=== PATIENT | female | born 1955 | race Caucasian/White ===

== ENCOUNTER 2025-02-10 07:48 | Day surgery (SDC) | payer BC, SELFPAY ==
[2025-01-15 13:28] VITALS: BMI 38.8
[2025-01-15 14:05] LABS: % Eosinophils 1.9 % (0-6); % Immature Granulocytes 0.2 % (0-0.5); % Lymphocytes 22.8 % (20.5-51.1); % Monocytes 9.1 % (1.7-9.3); Absolute Basophils 0.1 10^3/uL (0-0.2); Absolute Eosinophils 0.2 10^3/uL (0-0.7); Absolute Lymphocytes 2.2 10^3/uL (1.2-3.4); Absolute Monocytes 0.9 10^3/uL (0.1-0.6); Absolute Neutrophils 6.3 10^3/uL (1.4-6.5); Hematocrit 45.8 % (37.0-47.0); Hemoglobin 14.7 g/dL (12.0-16.0); Mean Corp Hgb Conc. 32.1 g/dL (33.0-37.0); Mean Corpuscular Hgb 28.1 pg (27.0-31.0); Mean Corpuscular Volume 87.4 fL (81.0-99.0); Mean Platelet Volume 10.8 fL (7.4-10.4); Nucleated Red Blood Cells % 0 %; Platelet Count 238 10^3/uL (130-400); Red Blood Cell Count 5.24 10^6/uL (4.20-5.40); Red Cell Dist. Width 14.1 % (11.5-14.5); White Blood Cell Count 9.7 10^3/uL (4.8-10.8)
[2025-01-15 14:14] LABS: INR 1.15
[2025-01-15 14:53] LABS: ALT (SGPT) 27 U/L (0-35); AST (SGOT) 30 U/L (14-36); Albumin 4.2 g/dl (3.5-5.0); Alkaline Phosphatase 84 U/L (38-126); Blood Urea Nitrogen 15 mg/dl (7-17); Calcium 10.8 mg/dl (8.4-10.2); Carbon Dioxide 27 mmol/L (22-30); Chloride 106 mmol/L (98-107); Estimated Creatinine Clearance 70 ml/min; Glucose 87 mg/dl (70-99); Magnesium 2.1 mg/dl (1.6-2.3); Potassium 4.9 mmol/L (3.5-5.1); Sodium 142 mmol/L (135-145); Total Bilirubin 1.3 mg/dl (0.2-1.3); eGFR > 60.00
[2025-02-10] VITALS (29 sets, daily range): BP systolic 95–156; BP diastolic 63–98; BMI 38.8
[2025-02-10 11:27] LABS: ACT-LR - POC 273 Seconds (116-155)
--- NOTE | 2025-02-10 12:02 | ITS.CL.ABL ---
Research Programmer - Ablation
Ablation
Procedure Report:
ELECTROPHYSIOLOGY ABLATION STUDY
DATE:: February 10, 2025�����������������������������REFERRING: Dr. Boaz Dobbins
INDICATION: Persistent supraventricular tachycardia in the form of atrial fibrillation.��Prior cryoballoon ablation in 2023 and prior tachycardia induced cardiomyopathy
HISTORY: See H and P.��As above
ANTIARRHYTHMIC DRUG: Prior history of amiodarone use
PRE-PROCEDURE RONAN: No intracardiac thrombus and intracardiac ultrasound. Intracardiac ultrasound demonstrated ejection fraction of 2024%
PRESENTING RHYTHM: Atrial fibrillation with rapid ventricular response
'TIME-OUT':��called and confirmed.
SEDATION/ANESTHESIA:��provided via the anesthesia department using general anesthesia (LMA).
INTRAVENOUS/ARTERIAL ACCESS:
Right femoral venous -8 Venezuelan, upgraded to a 16.8 Venezuelan long sheath with serial dilation
Left femoral venous - 8 Fr, 6 Fr
Left femoral arterial - 5 Fr
Ultrasound guidance for bilateral femoral vein access was utilized by me to obtain access with demonstration of normal anatomy
CHADS-VASC Score:
Qpoics-ml-fjuzr suture after protamine
HAS-Bled Score
PROCEDURE:
1.��A decapolar CS catheter was placed within the CS for mapping and pacing.��This was also used as the reference catheter for the 3-D map.
2. The intracardiac ultrasound catheter was positioned in the RA to identify the FO for targeting of transseptal puncture, assist��in identification of the pulmonary vein ostia, monitoring pre and post ablation pulmonary vein flow velocities,
monitoring for 'bubble' formation during RF application as a sign of thermal injury,��and to monitor for pericardial effusion during mapping and ablation procedure.���Left atrial size, LV ejection fraction, and pulmonary vein flows were monitored
pre and post ablation procedure. The other valves were inspected and found to be free of significant regurgitation or stenosis. Intracardiac echo demonstrated ejection fraction of 20 to 25%.
3.��Half of the calculated heparin bolus was administered prior to the first transeptal puncture.��Transseptal puncture was performed to diagnose RA and LA pressure so that safety of LA mapping and ablation could be further assessed, and to access
the left atrium and pulmonary veins for mapping and ablation.��This entailed advancing an 16.8 Venezuelan sheath with dilator into the superior vena cava and withdrawing both (monitoring intracardiac ultrasound, fluoroscopy and tip pressure) with the
tip oriented toward the atrial septum.��The fossa ovalis was engaged (indicated by sudden displacement of the sheath tip as well as tenting of the fossa seen on intracardiac ultrasound).��Left atrial access required a pass with the [employer]
needle extended.��Left atrial catheter position was confirmed by pressure monitoring (RA mean pressure 14 mm Hg and LA mean presure 29 mm Hg), LA saturation (99%),��as well as fluoroscopy.��The sheath was advanced over the dilator and positioned in
the left atrium.��This procedure was repeated for the Agilis sheath.��The remainder of the calculated heparin bolus was administered and heparin was
infused to maintain ACT at 300 -350 seconds throughout the case.
4.��RA pacing was performed via the proximal decapolar poles and LA pacing was performed via the distal decapolar poles.
5. A quadrapolar catheter was first positioned at the His position for His Bundle recording which was tagged via the 3-D Navex sytem, and then passed to the RVA for RV pacing and recording.
6. The multipolar and Penta splint catheter were placed in each of the LIPV, LSPV, RSPV and the RIPV.��Focal reconnection at the right pulmonary vein antonio was noted otherwise the right middle pulmonary vein, the sixth accessory pulmonary vein, and
the left veins were chronically isolated.
7.��Next, a 3-D map was created using Navex.���A 3-D reconstructed CT image was compared to the 3-D Navex map to assist in anatomic interpretation, mapping and ablation.��The CT image and the NavX image were fused.
8. A total of 45 lesions were given. All of in basket lesions were given to the antonio of the right inferior and right superior pulmonary veins for focal reconnection. The remainder of the veins were chronically isolated. Flower post was given
anchoring lesions in the posterior wall roof and floor as well as the interatrial septum and the low interatrial septum. Additional lesions at the base of the ligament of Rafi were given in flower pose. Patient was cardioverted to sinus rhythm
200 J demonstrating entrance next block in all 4 pulmonary veins as well as the posterior wall. Ejection fraction improved to 25 to 30% in sinus rhythm.
9. Normal sinus node and AV node function noted.
TOTAL FLOURO TIME: 16.8 minutes 160 mGy
TOTAL RF DURATION: 0 minutes
REVERSAL OF HEPARIN: 35 mg of protamine, slow IV administration
COMPLICATIONS:
None
Intracardiac US shows no pericardial effusion post ablation.
SUMMARY:��
Complex left atrial mapping and ablation.
Isolation of the right pulmonary vein antonio and the posterior wall including floor, posterior wall, and roof. Entrance and exit block confirmed in all the pulmonary veins.
RECOMMENDATIONS:
1. Given elevated left atrial pressures as well as baseline heart rate in the low 100s in sinus rhythm she presents with acute on chronic systolic congestive heart failure. She will be admitted for IV diuresis and attempt at guideline based
medical therapy at very low dose as she has not been tolerant to medications in the past with hypotension. Will start metoprolol 12.5 mg daily with aggressive hold parameter and losartan 25 mg daily staggered with aggressive hold parameter.
2. Resume anticoagulation
3.� Out of bed in 4 hours
4.��Will attempt low-dose amiodarone for 2 to 3 months at 200 mg daily to attempt to hold sinus rhythm
Copy to: Dr. Boaz dobbins
[2025-02-10] MEDS: LASIX 40 MG IV ×2 (13:14→21:50)
[2025-02-10] MEDS: TOPROL XL 12.5 MG PO (13:19)
--- NOTE | 2025-02-10 14:30 | PTCARENOTE ---
Received pt from grass farm laborer, S/P PVI. Monitor showing SR/ST, VSS. BL groin sites with dressings c/d/i, no bleeding noted, no hematoma. +doppler pulses BL. Oriented to room, at bedside, call salazar in reach.
--- NOTE | 2025-02-10 14:36 | CM ---
Reviewed chart. Met with and Mrs. Donohue to review discharge plans. She states prior to admission she resides with her spouse in a spilt level home with nine steps to enter. She states she has seven steps to get to each level She states prior
to admission she was independent with ambulation and adls. She states she does not have any DME in the home. She states she has a prescription plan and uses [facility]. The discharge plan is to return [place] with her spouse when medically
stable.
[2025-02-10] MEDS: COZAAR 25 MG PO (17:30)
[2025-02-10] MEDS: LIPITOR 40 MG PO (21:50)
[2025-02-10] MEDS: ELIQUIS 5 MG PO (21:50)
--- NOTE | 2025-02-10 23:00 | PTCARENOTE ---
Received pt at change of shift resting in bed w/ at bedside. NSR to sinus tach on the monitor with occ. PVC, HR high 90's-100's. Left and right groin sites C,D,I. No bleeding or hematoma noted at this time. Doppler pedal pulses. 40mg IV
Lasix administered once per order--see MAR. Pt educated to urinate in hat placed in toilet to measure accurate I/Os. Call salazar within reach.
[2025-02-11 04:40] VITALS: BP 118/73
[2025-02-11 04:57] VITALS: BMI 38.3
[2025-02-11] MEDS: ANESTHETIC LOZENGE 1 LOZENGE PO ×2 (05:05→13:21)
[2025-02-11 05:09] LABS: Hematocrit 39.3 % (37.0-47.0); Hemoglobin 13.1 g/dL (12.0-16.0); Mean Corp Hgb Conc. 33.3 g/dL (33.0-37.0); Mean Corpuscular Hgb 28.7 pg (27.0-31.0); Mean Platelet Volume 10.4 fL (7.4-10.4); Platelet Count 229 10^3/uL (130-400); Red Blood Cell Count 4.57 10^6/uL (4.20-5.40); White Blood Cell Count 17.4 10^3/uL (4.8-10.8)
[2025-02-11 05:33] LABS: Blood Urea Nitrogen 25 mg/dl (7-17); Calcium 9.9 mg/dl (8.4-10.2); Carbon Dioxide 24 mmol/L (22-30); Chloride 106 mmol/L (98-107); Estimated Creatinine Clearance 77 ml/min; Glucose 133 mg/dl (70-99); Magnesium 1.9 mg/dl (1.6-2.3); Potassium 4.4 mmol/L (3.5-5.1); Sodium 139 mmol/L (135-145); eGFR > 60.00
[2025-02-11 06:51] VITALS: BP 107/65
[2025-02-11] MEDS: ELIQUIS 5 MG PO (08:04)
[2025-02-11] MEDS: PACERONE 200 MG PO (08:04)
[2025-02-11] MEDS: COZAAR 25 MG PO (08:04)
[2025-02-11] MEDS: TOPROL XL 12.5 MG PO (08:04)
[2025-02-11] MEDS: LASIX 40 MG IV (08:05)
--- NOTE | 2025-02-11 09:20 | CM ---
Reviewed chart. Met with and Mrs. Donohue to review discharge plans. She states she is feeling well and maybe able to go home soon. Prior to admission she resides with her spouse in a spilt level home with nine steps to enter. She has seven
steps to get to each level. Prior to admission she was independent with ambulation and adls. She states she does not have any DME in the home Home. She states she has a prescription plan and uses [facility]. The discharge plan is to return
home with her spouse when medically stable.
--- NOTE | 2025-02-11 11:16 | W.PN.CARDCBS ---
Addendum entered and electronically signed by Marino Bess MD 02/11/25 13:09:
Patient seen and examined
Agree with WALLPAPER HANGER note assessment
Agree with WALLPAPER HANGER plan
Exam:
JVP 6
Alert and oriented x 3
Nonfocal neurologically
Cor regular no murmur rubs or gallops
Lungs clear to auscultation bilaterally
Abdomen soft nontender positive bowel sounds
No extremity edema
Impression:
Symptomatic recurrent persistent Afib
prior PVI 2023
s/p redo PVI 02/10/25
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
Acute on chronic HFrEF, LA pressure 29mmHg
HTN
HLD
LLL lung nodule
Plan:
post ablation feels well
No hematoma or bruit bilateral groins
tele SR with occasional PAT
EF depressed intraprocedurally 25% with elevated filling pressures, 29mmHg
continue IV diuresis this am, will continue with PO lasix 20mg daily x 7 days then PRN
has had issues with hypotension/vasovagal/dizziness on HF meds in past
will trial on Toprol 12.5mg daily, losartan 25mg daily, so far tolerating with SBP >90
Attempt to reinitiate Amiodarone 200mg daily for 2-3 months to try to hold SR, had side effects in past
Stop Diltiazem
OAC Eliquis
Activity restrictions reviewed
f/u Dr. Nichols in 1 mo
home later today if BP stable
Original Note:
Today's Communication / Plan
-
post ablation with acute HFrEF
attempt low dose GDMT today and titrate as able
continue OAC
IV diuresis then PO x 1 week
home later today if BP stable on new regime
Impression / Plan
-
PCP: Edith Esteban, DO
CDY: Boaz Nichols MD
Impression:
Symptomatic recurrent persistent Afib
prior PVI 2023
s/p redo PVI 02/10/25
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
Acute on chronic HFrEF, LA pressure 29mmHg
HTN
HLD
LLL lung nodule
Plan:
post ablation feels great
groins stable
tele SR with occasional PAT
EF depressed intraprocedurally 25% with elevated filling pressures, 29mmHg
continue IV diuresis this am, will continue with PO lasix 20mg daily x 7 days then PRN
has had issues with hypotension/vasovagal/dizziness on HF meds in past
will trial on Toprol 12.5mg daily, losartan 25mg daily, so far tolerating with SBP >90
Attempt to reinitiate Amiodarone 200mg daily for 2-3 months to try to hold SR, had side effects in past
Stop Diltiazem
OAC Eliquis
Activity restrictions reviewed
f/u Dr. Nichols in 1 mo
home later today if BP stable
SUMMARY:��
Complex left atrial mapping and ablation.
Isolation of the right pulmonary vein antonio and the posterior wall including floor, posterior wall, and roof. Entrance and exit block confirmed in all the pulmonary veins.
Progress Note - Corridor Redevelopment Manager
Subjective
Date of Service: February 11, 2025
denies cp, sob
Objective
Labs:
02/11/25 04:53
02/11/25 04:53
Labs
Hgb 13.1 g/dL (12.0-16.0) 02/11/25 04:53
Hct 39.3 % (37.0-47.0) 02/11/25 04:53
Plt Count 229 10^3/uL (130-400) 02/11/25 04:53
PT 15.0 Sec (11.4-14.6) H 0404/25 13:38
INR 1.15 01/15/25 13:38
Sodium 139 mmol/L (135-145) 02/11/25 04:53
Potassium 4.4 mmol/L (3.5-5.1) 02/11/25 04:53
BUN 25 mg/dl (7-17) H 02/11/25 04:53
Creatinine 0.9 mg/dL (0.6-1.0) 02/11/25 04:53
Glucose 133 mg/dl (70-99) H 02/11/25 04:53
Vital Signs and I&O:
Vital Signs
Temp Pulse Resp BP Pulse Ox
97.8 F 94 20 107/65 98
02/11/25 06:53 02/11/25 08:00 02/11/25 06:53 02/11/25 06:51 02/11/25 08:36
Vital Signs
Temp Pulse Resp BP Pulse Ox
97.8 F 94 20 107/65 98
02/11/25 06:53 02/11/25 08:00 02/11/25 06:53 02/11/25 06:51 02/11/25 08:36
Intake & Output
02/09/25 02/10/25 02/11/25 02/12/25
06:59 06:59 06:59 06:59
Intake Total 480 / 480
Output Total 1400 / 1400
Balance -920 / -920
Physical Exam
Physical Exam
NAD< AOX3
S1, s2, RRR
CTAB, non labored, no wheeze
SNTND bsx4
b/l groins c/d/i no HT, soft
[2025-02-11 11:24] VITALS: BP 103/68
--- NOTE | 2025-02-11 14:15 | W.DS.TRANS ---
DC Summary - Toll Settlement Clerk
-
Discharge Instructions:
Sleep Apnea Risk Low
Discharge Diagnosis/Procedures Atrial fibrillation post ablation
Diet Low Cholesterol
Driving Restrictions No driving for 24 hours
Instructions:
Stand-Alone Forms: DC Instructions- Cath/EP Lab
Changes to Home Medications: Yes
Discharge Medications:
DC Medications w/original date entered in [employer]
apixaban 5 mg tablet (Eliquis) 5 mg PO BID Blood Clot Prevention/Tx 10/15/23
atorvastatin 40 mg tablet 40 mg PO HS High Cholesterol 10/15/23
cholecalciferol (vitamin D3) 25 mcg (1,000 unit) capsule (Vitamin D3) 25 mcg PO DAILY Supplement 10/15/23
Mounja Pure Ketone 2 ml PO BID 01/13/25
azelastine 137 mcg (0.1 %) nasal spray 2 spray intranasal DAILY Post Nasal Drip 01/13/25
cyanocobalamin (vitamin B-12) 1,000 mcg tablet (Vitamin B-12) 1,000 mcg PO DAILY Supplement 01/13/25
magnesium 250 mg tablet 250 mg PO DAILY 01/13/25
amiodarone 200 mg tablet 200 mg PO DAILY #30 tabs 02/11/25
furosemide 20 mg tablet (Lasix) 20 mg PO DAILY #30 tabs 02/11/25
losartan 25 mg tablet 25 mg PO DAILY #30 tabs 02/11/25
metoprolol succinate 25 mg tablet,extended release 24 hr 12.5 mg (1/2 x 25 mg) PO DAILY #30 tabs 02/11/25
Home Medication Changes
stop dilitazem, new to metoprolol, losartan, lasix, amiodarone
Pending Results: No
--- NOTE | 2025-02-11 15:00 | SUR.OPER ---
Pt received this am with no c/o of any pain or sob. Bilateral groin site dressings dry and intact, sites WNL. Room air sat 98%. OOB ad allan in the room. Pt discharged to home with her . Discharge instructions given and reviewed with good
understanding and all questions answered.
[2025-02-11 15:43] VITALS: BP 106/72
== END 2025-02-11 15:00 | disposition home or self-care (01) ==
LOC: CATH 07:48
PROVIDERS: Nurse Practitioner Adult Health; ATTENDING PHYSICIAN Internal Medicine Cardiovascular Disease; FAMILY PHYSICIAN Family Medicine; OTHER PHYSICIAN Internal Medicine Cardiovascular Disease
DX: I48.19 Other persistent atrial fibrillation (principal); E66.9 Obesity, unspecified; I11.0 Hypertensive heart disease with heart failure; I50.23 Acute on chronic systolic (congestive) heart failure; Z68.38 Body mass index [BMI] 38.0-38.9, adult; Z79.899 Other long term (current) drug therapy; E78.5 Hyperlipidemia, unspecified; I42.8 Other cardiomyopathies; I47.10 Supraventricular tachycardia, unspecified; R55 Syncope and collapse; R09.82 Postnasal drip; M19.90 Unspecified osteoarthritis, unspecified site; E55.9 Vitamin D deficiency, unspecified; Z87.891 Personal history of nicotine dependence; Z88.5 Allergy status to narcotic agent; Z79.02 Long term (current) use of antithrombotics/antiplatelets; R91.1 Solitary pulmonary nodule; Z79.01 Long term (current) use of anticoagulants; Z90.89 Acquired absence of other organs; Z98.890 Other specified postprocedural states; Z98.51 Tubal ligation status; E83.52 Hypercalcemia
CPT/HCPCS: C1732; C1894; C1730; C1892; C1759; 36415; 80048; 80053; 83735; 85025; 85027; 85347; 85610; 86850; 86900; 86901; 93005; 93656; 93657; C1733; C1766